=== PATIENT | female | born 1945 | race Caucasian/White ===

== ENCOUNTER 2020-04-13 19:08 | Inpatient (IN) | payer MEDICARE, OTHER ==
[~2020-04-13] VITALS: Ht 167.6 cm; Wt 75.5 kg
[2020-04-14] VITALS (9 sets, daily range): BP systolic 99–130; BP diastolic 60–81
--- NOTE | 2020-04-14 00:46 | NUR ---
Direct admit patient arrived to hospital Patient arrived via stretcher. Patient oriented to room, bed, call light, policies and procedures. Patient verbalized understanding. Safety measures maintained by keeping the bed locked in lowest position, 2 side rails up, personal items, and call light within reach. Will continue to monitor.
--- NOTE | 2020-04-14 01:19 | NUR ---
Paged MD Landry for orders
--- NOTE | 2020-04-14 01:23 | NUR ---
Spoke with MD Landry
[2020-04-14] MEDS ORDERED: MORPHINE SULF INJ 2 MG/ML SYRINGE 1ML IV PRN (01:30)
[2020-04-14] MEDS ORDERED: NITROGLYCERIN 0.4 MG SL TAB SL PRN (01:30)
[2020-04-14] MEDS: SODIUM CHLORIDE 0.9% 1,000 ML IV SCH ×2 (02:28→22:41)
[2020-04-14] MEDS ORDERED: IBUPROFEN 600 MG TAB PO PRN (02:30)
[2020-04-14 05:46] LABS: Urine Bacteria FEW /hpf (None Seen); Urine Blood Negative /uL (Negative); Urine Hyaline Cast FEW /lpf (0 - 2); Urine WBC 4 /hpf (0 - 5)
[2020-04-14] MEDS ORDERED: ALLO300T2 PO (05:46)
[2020-04-14] MEDS ORDERED: ATEN-60 PO (05:59)
[2020-04-14] MEDS ORDERED: HYDR-4188 PO (05:59)
[2020-04-14] MEDS ORDERED: FERR-20 PO (05:59)
[2020-04-14] MEDS ORDERED: ESOM20CA PO (05:59)
[2020-04-14] MEDS ORDERED: PRIM50TA5 PO ×2 (05:59→10:34)
[2020-04-14] MEDS ORDERED: LOSA25TA38 PO (05:59)
[2020-04-14] MEDS ORDERED: HYDR12.56 PO ×2 (05:59→10:34)
[2020-04-14] MEDS ORDERED: MAGN400T40 PO (05:59)
[2020-04-14] MEDS ORDERED: DICY20TA PO ×2 (05:59→10:34)
[2020-04-14] MEDS ORDERED: IBU600T PO (05:59)
[2020-04-14] MEDS ORDERED: VENL150C2 PO (05:59)
[2020-04-14] MEDS ORDERED: PANT40TA2 PO (05:59)
[2020-04-14] MEDS ORDERED: METF-370 PO (05:59)
[2020-04-14] MEDS ORDERED: ALBUTEROL SULF HFA 90MCG INH 200DOSE IN SCH (06:00)
[2020-04-14] MEDS ORDERED: CYA100I PO (06:02)
[2020-04-14] MEDS ORDERED: ALBUAER3 IN (06:02)
[2020-04-14] MEDS ORDERED: LEV100T PO (06:02)
[2020-04-14 06:22] LABS: Basophils # (auto) 0 10 ^3/uL (0-0.2); Eosinophils # (auto) 0.1 10 ^3/uL (0-0.8); Eosinophils % (auto) 1.1 % (0.0-7.0); Hematocrit 29.3 % (36.0-46.0); Hemoglobin 9.3 g/dL (12.2-16.2); Lymphocytes # (auto) 1.9 10 ^3/uL (0.4-5.4); Mean Corpuscular Hemoglobin 30.1 pg (28.0-32.0); Mean Corpuscular Hgb Conc. 31.8 g/dL (32.0-36.0); Mean Corpuscular Volume 94.5 fL (80.0-100.0); Monocytes # (auto) 0.7 10 ^3/uL (0-1.3); Neutrophils # (auto) 6.6 10 ^3/uL (1.6-8.6); Neutrophils % (auto) 70.9 % (37.0-80.0); Platelet Count (auto) 163 10^3/uL (140-450); Red Cell Distribution Width 15.3 % (11.8-14.3); White Blood Cell 9.3 10^3/uL (4.4-10.8)
[2020-04-14] MEDS: ALBUTEROL SULF 2.5 MG/0.5ML(0.5%) NEB SOLN NEB SCH ×3 (06:25→18:47)
[2020-04-14] MEDS: HCTZ 25 MG TAB PO SCH (06:31)
[2020-04-14 06:38] LABS: INR 1.04 (0.9-1.15); Partial Thromboplastin Time 26.2 sec (23.0-31.2)
[2020-04-14 07:07] LABS: Potassium 3.6 mmol/L (3.5-5.1)
[2020-04-14 07:22] LABS: Albumin 3.2 g/dL (3.4-5.0); BUN/Creatinine Ratio 26.3; Bilirubin, Total 0.5 mg/dL (0.2-1.0); Calcium 9.9 mg/dL (8.5-10.1); Total Protein 6.5 g/dL (6.4-8.2)
--- NOTE | 2020-04-14 09:00 | NUR ---
Dr Villatoro-cardiology at bedside to see patient, discussed plan of care with the pt.
[2020-04-14] MEDS ORDERED: PANTOPRAZOLE 40 MG TAB PO SCH (10:00)
[2020-04-14] MEDS ORDERED: MAGNESIUM OXIDE 400 MG TAB PO SCH (10:00)
[2020-04-14] MEDS: LOSARTAN POTASSIUM 25 MG TAB PO SCH (10:00)
[2020-04-14] MEDS ORDERED: ENOXAPARIN SOD 100 MG/1 ML SYRINGE SC SCH (10:00)
[2020-04-14] MEDS ORDERED: POTASSIUM CHLORIDE PO SCH (10:00)
[2020-04-14] MEDS ORDERED: LEVO137T3 PO (10:34)
[2020-04-14] MEDS ORDERED: METF-911 PO (10:34)
[2020-04-14] MEDS: POTASSIUM CHL 20 Meq TABLET PO SCH ×2 (10:49→21:38)
[2020-04-14] MEDS: PRIMIDONE 50 MG TAB PO SCH ×2 (10:51→21:09)
[2020-04-14] MEDS: LEVOTHYROXINE SODIUM 25 MCG TAB PO SCH (10:53)
[2020-04-14] MEDS: CYANOCOBALAMIN 500 MCG TAB PO SCH (10:53)
[2020-04-14] MEDS: ATENOLOL 50 MG TAB PO SCH (10:53)
[2020-04-14] MEDS: ASPirin 81 mg TAB PO SCH (10:55)
[2020-04-14] MEDS: hydrOXYchloroQUINE SULFATE 200 MG TAB PO SCH ×2 (10:55→21:08)
[2020-04-14] MEDS: FERROUS SULFATE 325 MG TAB PO SCH (10:56)
[2020-04-14] MEDS: MAGNESIUM OXIDE 400 MG TAB PO SCH (10:56)
[2020-04-14] MEDS: DICYCLOMINE HCL 10 MG CAP PO SCH ×2 (10:57→21:11)
[2020-04-14] MEDS: LEVOTHYROXINE SODIUM 112 MCG TAB PO SCH (10:57)
[2020-04-14] MEDS: PANTOPRAZOLE 40 MG TAB PO SCH (10:58)
[2020-04-14] MEDS: VENLAFAXINE HCL 37.5MG TABLET PO SCH ×2 (11:04→21:18)
[2020-04-14] MEDS: ENOXAPARIN SOD 80 MG/0.8ML SYRINGE SC SCH ×2 (12:11→21:08)
--- NOTE | 2020-04-14 14:03 | NUR ---
Pacemaker telecommunications switch technician at bed side to assess pacemaker.
--- NOTE | 2020-04-14 17:44 | NUR ---
dynamics ax technical architect at bedside to do echocardiogram.
[2020-04-14] MEDS: FUROSEMIDE 40 MG/4 ML VIAL IV SCH (18:06)
--- NOTE | 2020-04-14 20:00 | NUR ---
Opening Shift Note Assumed care of patient, awake and alert. No S/S of distress/SOB or pain. Instructed on POC and to call for assist PRN, will continue to monitor for changes Q1hr and PRN.Advised no food or drink after midnight for angiogram tomorrow.
[2020-04-14] MEDS: ATORVASTATIN 20 MG TAB PO SCH (21:09)
[2020-04-14] MEDS: ALLOPURINOL 300 MG TAB PO SCH (21:09)
[2020-04-14] MEDS: metFORMIN HYDROCHLORIDE 500 MG TAB PO SCH (21:10)
[2020-04-15] MEDS: ALBUTEROL SULF 2.5 MG/0.5ML(0.5%) NEB SOLN NEB SCH ×3 (00:28→19:11)
[2020-04-15 05:00] VITALS: BP 114/64
[2020-04-15] MEDS: FUROSEMIDE 40 MG/4 ML VIAL IV SCH ×2 (05:09→18:00)
[2020-04-15] MEDS: HCTZ 25 MG TAB PO SCH (06:27)
--- NOTE | 2020-04-15 06:40 | NUR ---
Brought down to cath.lab.and report given to cath. labSimran Sherwood
--- NOTE | 2020-04-15 06:40 | NUR ---
Respiratory note: PT MEDNEB NOT GIVEN. PT NOT IN OMID. PT AT PROCEDURE IN ADJUNCT SPANISH INSTRUCTOR.
[2020-04-15 06:51] LABS: Basophils # (auto) 0 10 ^3/uL (0-0.2); Basophils % (auto) 0.2 % (0.0-2.0); Eosinophils # (auto) 0.1 10 ^3/uL (0-0.8); Eosinophils % (auto) 1.7 % (0.0-7.0); Hematocrit 30.1 % (36.0-46.0); Hemoglobin 9.8 g/dL (12.2-16.2); Lymphocytes # (auto) 1.6 10 ^3/uL (0.4-5.4); Lymphocytes % (auto) 19.7 % (10.0-50.0); Mean Corpuscular Hgb Conc. 32.7 g/dL (32.0-36.0); Mean Corpuscular Volume 94.7 fL (80.0-100.0); Monocytes # (auto) 0.8 10 ^3/uL (0-1.3); Monocytes % (auto) 9.3 % (0.0-12.0); Neutrophils # (auto) 5.6 10 ^3/uL (1.6-8.6); Neutrophils % (auto) 69.1 % (37.0-80.0); Platelet Count (auto) 167 10^3/uL (140-450); Red Blood Cells 3.18 10^6/uL (4.0-5.20); Red Cell Distribution Width 15.2 % (11.8-14.3); White Blood Cell 8.2 10^3/uL (4.4-10.8)
[2020-04-15 07:06] LABS: Potassium 4.1 mmol/L (3.5-5.1)
[2020-04-15 07:15] LABS: Albumin 3.2 g/dL (3.4-5.0); Bilirubin, Total 0.4 mg/dL (0.2-1.0); Magnesium 1.4 mg/dL (1.6-2.6); Total Protein 6.6 g/dL (6.4-8.2)
[2020-04-15] MEDS ORDERED: VERAPAMIL 2.5MG/ML INJ 2ML VIAL IV ONE (07:17)
[2020-04-15] MEDS ORDERED: MIDAZOLAM HCL 1MG/1ML-2 ML VIAL ONE (07:17)
[2020-04-15] MEDS ORDERED: HEPARIN SODIUM (PORCINE) 5000 UNITS/ML 1ML VIAL ONE (07:17)
[2020-04-15] MEDS ORDERED: fentaNYL CITRATE 100 MCG/2 ML VL ONE (07:17)
[2020-04-15] MEDS ORDERED: ANGIOMAX 250 MG VIAL IV ONE (07:18)
[2020-04-15] MEDS ORDERED: LIDOCAINE 2%HCL (LOCAL ANESTH.) INJ 20ML MDV ONE (07:18)
[2020-04-15] MEDS ORDERED: NITROGLYCERIN 50MG/250ML 250 ML IV ONE (07:18)
[2020-04-15] MEDS ORDERED: IOHEXOL 350 MG/ML 100ML IJ ONE (07:19)
--- NOTE | 2020-04-15 07:30 | NUR ---
Report given to Presley Comer, patient is in cath. lab.
--- NOTE | 2020-04-15 07:47 | NUR ---
Report received from Chely CHAPMAN. Pt. is currently in Title Curative Specialist.
--- NOTE | 2020-04-15 08:42 | NUR ---
0803 recieved pt. pt denies distress. nad noted. pt has +PMSC to right hand. vasc band in place. no signs or symptoms of bleeding or hematoma. pt informed not to move right hand and verbalizes understanding of signs and symptoms to report. continous pulse ox to right hand. 0818 pt states that her hand is starting to hurt. +PMSC to right hand. deflated 2mls to band no signs of bleeding. pt verbalizes signs and symptoms to report. 0830 report given to floor RN. pt denies distress. pt placed on bed roper. +PMSC to right hand. 0845 pt taken upstairs to room 223 via bed without incident. site checked with PCN. no signs or symptoms of bleeding. +PMSC
[2020-04-15 09:00] VITALS: BP 117/61
--- NOTE | 2020-04-15 09:00 | NUR ---
Pt. received from Cardiac Shape Hand. Vasc Band was assessed with clinical laboratory aide nurses by bedside. No bleeding noted. Two mLs of air were removed per protocol. Will continue to monitor until next 15 minutes.
--- NOTE | 2020-04-15 09:26 | NUR ---
Two mLs of air were removed from Vasc Ban. No bleeding noted on site. Pt. tolerated well.
--- NOTE | 2020-04-15 09:38 | NUR ---
Syringe was connected to Vasc Band, but no air came out. Two mLs were aspirated, not bleeding noted. Will monitor and consider removal of bracelet if not air comes out on next check.
[2020-04-15] MEDS: ATENOLOL 50 MG TAB PO SCH (10:00)
[2020-04-15] MEDS: LOSARTAN POTASSIUM 25 MG TAB PO SCH (10:00)
[2020-04-15] MEDS: ENOXAPARIN SOD 80 MG/0.8ML SYRINGE SC SCH ×2 (10:00→21:06)
[2020-04-15] MEDS: PANTOPRAZOLE 40 MG TAB PO SCH (10:00)
[2020-04-15] MEDS: VENLAFAXINE HCL 37.5MG TABLET PO SCH ×2 (10:00→21:06)
[2020-04-15] MEDS: DICYCLOMINE HCL 10 MG CAP PO SCH ×2 (10:00→21:07)
--- NOTE | 2020-04-15 10:00 | NUR ---
Pt.'s Vasc Band site was assessed. No air was collected when syringe was applied, therefore Vas Band was removed and gauze and Coban were applied. Pt. tolerated well. Blood Pressure is in the 90s systolic. Will continue to monitor; Pt . is asymptomatic.
[2020-04-15 10:30] VITALS: BP 99/60
[2020-04-15 11:00] VITALS: BP 108/69
[2020-04-15] MEDS: ASPirin 81 mg TAB PO SCH (12:01)
[2020-04-15] MEDS: hydrOXYchloroQUINE SULFATE 200 MG TAB PO SCH ×2 (12:02→21:09)
[2020-04-15] MEDS: CYANOCOBALAMIN 500 MCG TAB PO SCH (12:02)
[2020-04-15] MEDS: MAGNESIUM OXIDE 400 MG TAB PO SCH (12:03)
[2020-04-15] MEDS: POTASSIUM CHL 20 Meq TABLET PO SCH ×2 (12:03→21:08)
[2020-04-15] MEDS: LEVOTHYROXINE SODIUM 112 MCG TAB PO SCH (12:04)
[2020-04-15] MEDS: LEVOTHYROXINE SODIUM 25 MCG TAB PO SCH (12:04)
[2020-04-15] MEDS: PRIMIDONE 50 MG TAB PO SCH ×2 (12:04→21:08)
[2020-04-15] MEDS: FERROUS SULFATE 325 MG TAB PO SCH (12:10)
[2020-04-15 17:12] VITALS: BP 97/56
[2020-04-15] MEDS: SODIUM CHLORIDE 0.9% 1,000 ML IV SCH (17:30)
--- NOTE | 2020-04-15 19:41 | NUR ---
Pt. is resting comfortably in bed. Her blood pressure remains stable on the high 90s and low 100s systolic. She denies any weakness, dizziness or discomfort. She is alert and oriented times four. Report given to Chely Bravo.
--- NOTE | 2020-04-15 19:58 | NUR ---
Opening Shift Note Assumed care of patient, awake and alert. No S/S of distress/SOB or pain. Instructed on POC and to call for assist PRN, will continue to monitor for changes Q1hr and PRN.Dressing in the right wrist dry and intact.
[2020-04-15] MEDS: ALLOPURINOL 300 MG TAB PO SCH (21:07)
[2020-04-15] MEDS: ATORVASTATIN 20 MG TAB PO SCH (21:07)
[2020-04-15] MEDS: metFORMIN HYDROCHLORIDE 500 MG TAB PO SCH (21:09)
[2020-04-15 22:00] VITALS: BP 114/57
--- NOTE | 2020-04-15 22:04 | NUR ---
Metformin not given due to she had procedure this morning left heart cath.and received omnipaque.
[2020-04-16] MEDS: ALBUTEROL SULF 2.5 MG/0.5ML(0.5%) NEB SOLN NEB SCH ×4 (01:07→18:35)
[2020-04-16 05:00] VITALS: BP 108/66
[2020-04-16] MEDS: FUROSEMIDE 40 MG/4 ML VIAL IV SCH ×2 (05:36→18:00)
[2020-04-16] MEDS: HCTZ 25 MG TAB PO SCH (06:04)
[2020-04-16] MEDS: SODIUM CHLORIDE 0.9% 1,000 ML IV SCH (06:07)
--- NOTE | 2020-04-16 07:09 | NUR ---
Report given to Presley Parada, patient is resting no distress.
--- NOTE | 2020-04-16 07:30 | NUR ---
Opening Shift Note Assuming care of patient at this time. Patient is awake and alert. Patient denies pain at this time. Patient shows no signs or symptoms of distress or shortness of breath. Bed is locked and lowered with side rails up x2. Instructed patient on the plan of care for today and to call for assistance as needed. Call light within reach. Will continue to round hourly and as needed.
[2020-04-16 09:00] VITALS: BP 103/54
[2020-04-16] MEDS: LEVOTHYROXINE SODIUM 25 MCG TAB PO SCH (09:40)
[2020-04-16] MEDS: CYANOCOBALAMIN 500 MCG TAB PO SCH (09:40)
[2020-04-16] MEDS: LEVOTHYROXINE SODIUM 112 MCG TAB PO SCH (09:41)
[2020-04-16] MEDS: FERROUS SULFATE 325 MG TAB PO SCH (09:41)
[2020-04-16] MEDS: VENLAFAXINE HCL 37.5MG TABLET PO SCH (09:42)
[2020-04-16] MEDS: hydrOXYchloroQUINE SULFATE 200 MG TAB PO SCH (09:42)
[2020-04-16] MEDS: ASPirin 81 mg TAB PO SCH (09:44)
[2020-04-16] MEDS: PRIMIDONE 50 MG TAB PO SCH (09:44)
[2020-04-16] MEDS: MAGNESIUM OXIDE 400 MG TAB PO SCH (09:45)
[2020-04-16] MEDS: PANTOPRAZOLE 40 MG TAB PO SCH (09:45)
[2020-04-16] MEDS: POTASSIUM CHL 20 Meq TABLET PO SCH (09:45)
[2020-04-16] MEDS: DICYCLOMINE HCL 10 MG CAP PO SCH (09:47)
[2020-04-16] MEDS: ATENOLOL 50 MG TAB PO SCH (10:00)
[2020-04-16] MEDS ORDERED: ENOXAPARIN SOD 40 MG/0.4 ML SYRINGE SC SCH (10:00)
[2020-04-16] MEDS: LOSARTAN POTASSIUM 25 MG TAB PO SCH (10:00)
[2020-04-16 13:00] VITALS: BP 106/49
--- NOTE | 2020-04-16 14:23 | NUR ---
Nutrition Assessment Notes please see attached link for complete assessment Est energy needs BW 75 [id number] kcal (23-25 kcal/kg BW), Est protein needs 75-82 g (1.0-1.1g/kg BW). Will reassess prn. Addendum: 04/16/20 at [address] Amended: Links added.
[2020-04-16 16:46] VITALS: BP 110/55
--- NOTE | 2020-04-16 17:58 | NUR ---
Discharge Spoke with Dr. Gonzalez. Given orders to discharge patient. Made Dr. Gonzalez aware that Dr. Landry is requesting home health with [facility], for physical therapy. Dr. Gonzalez verbalizes that he will arrange home health for patient.
[2020-04-16 18:11] VITALS: BP 110/55
--- NOTE | 2020-04-16 18:15 | NUR ---
Prescription Messaged Dr. Gonzalez regarding patient's discharge prescription. Awaiting callback.
--- NOTE | 2020-04-16 18:25 | NUR ---
Prescription Messaged Dr. Gonzalez again regarding patient's discharge prescription. Awaiting callback.
--- NOTE | 2020-04-16 19:07 | NUR ---
Call to Pharmacy Called into patient's preferred pharmacy, [facility], per son and [id number]'s request. Lasix order left with message for pharmacy. Family aware to machine operator hop picker prescription.
--- NOTE | 2020-04-16 19:34 | NUR ---
Closing Shift Note Patient resting in bed. No distress noted. Report given. Will endorse care to the overnight stocker RN.
--- NOTE | 2020-04-16 19:59 | NUR ---
Discharge Discharge instructions given as ordered. Encourage to follow up with PMD as instructed. All questions and concerns addressed. Patient verbalized understanding. IV removed with catheter intact, pressure dressing applied. MRSA swab obtained and sent to lab via bullet, patient tolerated well. Telemetry unit returned to ICU, monitor technicians notified. Patient taken to vehicle via wheelchair with all personal belongings, accompanied by staff. Patient wheeled down on oxygen at 3 liters/minute via nasal cannula. Patient aware Dr. Elliott to set up home health with [facility] and that Dr. Gonzalez wants patient to stop the Hydrochlorothiazide and start the Lasix as ordered. Patient verbalized understanding. No distress noted at time of departure.
== END 2020-04-16 19:59 | disposition home health service (06) | DRG 286 ==
LOC: TELE-CENTR 04-14 01:26
PROVIDERS: ADMIT Specialist; ATTEND Specialist
PROC: 4B02XSZ Measurement of Cardiac Pacemaker, External Approach (ICD-10-PCS; 2020-04-14)
PROC: 4A023N7 Measurement of Cardiac Sampling and Pressure, Left Heart, Percutaneous Approach (ICD-10-PCS; principal; 2020-04-15)
PROC: B211YZZ Fluoroscopy of Multiple Coronary Arteries using Other Contrast (ICD-10-PCS; 2020-04-15)
PROC: B215YZZ Fluoroscopy of Left Heart using Other Contrast (ICD-10-PCS; 2020-04-15)
DX: I24.9 Acute ischemic heart disease, unspecified (principal); I50.33 Acute on chronic diastolic (congestive) heart failure; I11.0 Hypertensive heart disease with heart failure; E03.9 Hypothyroidism, unspecified; E11.9 Type 2 diabetes mellitus without complications; H91.90 Unspecified hearing loss, unspecified ear; I25.10 Atherosclerotic heart disease of native coronary artery without angina pectoris; J44.9 Chronic obstructive pulmonary disease, unspecified; M32.9 Systemic lupus erythematosus, unspecified; F41.9 Anxiety disorder, unspecified; E78.5 Hyperlipidemia, unspecified; I25.2 Old myocardial infarction; Z90.49 Acquired absence of other specified parts of digestive tract
CPT/HCPCS: 36415; 71045; 76705; 80053; 81001; 82962; 83735; 83880; 84484; 85025; 85610; 85730; 86850; 86870; 86900; 86901; 87081; 93005; 93306; 93458; 94640; 99152; 99153; G0378; J2250